=== PATIENT | male | born 1945 | race Hispanic/Latino ===

== ENCOUNTER → 2018-06-12 | Outpatient (CLI) | payer OTHER ==
[~2018-06-12] MED LIST: LOSA50TA64 PO; LOVA20TA3 PO; MONT10TA24 PO; OMEG1CAP12 PO; OMEP20CA10 PO; TAMS0.4C32 PO
== END | disposition home or self-care (01) ==
LOC: RAH 07:49
PROVIDERS: ATTEND Internal Medicine Gastroenterology
DX: N28.1 Cyst of kidney, acquired (principal); R94.5 Abnormal results of liver function studies; Z90.49 Acquired absence of other specified parts of digestive tract
CPT/HCPCS: 76700

== ENCOUNTER → 2019-03-03 | Outpatient (CLI) | payer OTHER ==
[~2019-03-03] MED LIST changes: -OMEP20CA10 PO; +OMEP20CA12 PO
== END | disposition home or self-care (01) ==
LOC: RAH 08:26
PROVIDERS: ATTEND Internal Medicine Gastroenterology
DX: N28.1 Cyst of kidney, acquired (principal)
CPT/HCPCS: 76700

== ENCOUNTER 2019-03-30 07:14 | Day surgery (SDC) | payer OTHER ==
[~2019-03-30 07:14] MED LIST changes: -MONT10TA24 PO; +MONT10TA26 PO
[2019-03-30 08:16] LABS: BASOPHILS % (AUTO) 0.4 % (0.0-5.0); EOSINOPHILS % (AUTO) 2.6 % (0.0-8.0); HEMATOCRIT 44.8 % (42-54); LYMPHOCYTES % (AUTO) 31.7 % (21.0-51.0); MEAN CORPUSCULAR HEMOGLOBIN 31.3 pg (27.0-33.0); MEAN CORPUSCULAR HGB CONC 32.6 g/dL (32.0-36.0); MEAN CORPUSCULAR VOLUME 96.1 fL (79-99); MONOCYTES % (AUTO) 8.9 % (3.0-13.0); PLATELET COUNT (AUTO) 251 K/uL (130-400); RED BLOOD CELL COUNT(AUTO) 4.66 MIL/uL (4.50-6.20); RED CELL DISTRIBUTION WIDTH 14.5 % (11.0-15.5); WHITE BLOOD COUNT (AUTO) 7.8 K/uL (4.8-10.8)
[2019-03-30 08:27] LABS: INR 1.02 (0.85-1.15); PARTIAL THROMBOPLASTIN TIME 26.4 SEC (26.3-35.5); PROTHROMBIN TIME 10.7 SEC (9.6-11.6)
[2019-03-30] MEDS ORDERED: MIDAZOLAM HCL 1 MG/ML 2ML VIAL ONE (09:35)
[2019-03-30] MEDS ORDERED: FENTANYL CITRATE PF 50 MCG/1 ML 2ML VIAL ONE (09:35)
--- NOTE | 2019-03-30 10:10 | NUR ---
U/S GUIDED LIVER BIOPSY PROCEDURE PERFORMED BY DR. YATES. PUNCTURE SITE RIGHT LATERAL RIB CAGE AND PATIENT TOLERATED PROCEDURE WELL. SPECIMEN X 3 REMOVED, SENT TO LAB. FLOSEAL PLACED TO SITE BIOPSY NEEDLE REMOVED AND DRESSING APPLIED . END OF PROCEDURE AT 1026. CATHETER REMOVED AND DRESSING APPLIED. NO BLEEDING NOTED. REPORT CALLED TO DALIA MONZON. PT TRANSPORTED TO DAYPATIENT RM 8 VIA BED. PT STABLE, AAO X3 WITH NO C/O PAIN.
[2019-03-30] MEDS ORDERED: ACETAMINOPHEN-CODEINE 300/30MG TAB PO ONE (10:30)
[2019-03-30] MEDS ORDERED: ACETAMINOPHEN-CODEINE 300/30MG TAB ONE (10:57)
== END 2019-03-30 13:50 | disposition home or self-care (01) ==
LOC: DAH 07:14 → DAHIP 07:14 → DAH 13:50
PROVIDERS: ATTEND Internal Medicine Gastroenterology
DX: R94.5 Abnormal results of liver function studies (principal); K75.89 Other specified inflammatory liver diseases; K74.0 Hepatic fibrosis; K76.0 Fatty (change of) liver, not elsewhere classified; I10 Essential (primary) hypertension; M19.90 Unspecified osteoarthritis, unspecified site; Z98.890 Other specified postprocedural states; Z90.49 Acquired absence of other specified parts of digestive tract; Z79.899 Other long term (current) drug therapy; Z87.891 Personal history of nicotine dependence; Z82.49 Family history of ischemic heart disease and other diseases of the circulatory system; Z83.3 Family history of diabetes mellitus
CPT/HCPCS: 36415; 47000; 76942; 85025; 85610; 85730; 88307; A4215; A4216; A4221; A4222; A4223 ×3; A4606; A4663; J2250; J3010; 99152; 99153; G0378

== ENCOUNTER → 2019-08-19 | Outpatient (CLI) | payer OTHER | END | disposition home or self-care (01) | LOC: RAH 07:51 | PROVIDERS: ATTEND Internal Medicine Gastroenterology | DX: N28.1 Cyst of kidney, acquired (principal); R10.13 Epigastric pain; Z90.49 Acquired absence of other specified parts of digestive tract | CPT/HCPCS: 76700 ==

== ENCOUNTER → 2019-09-03 | Outpatient (CLI) | payer OTHER ==
[~2019-09-03] MED LIST changes: +GADODIAMIDE 10 MMOL/20 ML VIAL IV ONE
== END | disposition home or self-care (01) ==
LOC: RAH 07:33
PROVIDERS: ATTEND Internal Medicine Gastroenterology
DX: N28.1 Cyst of kidney, acquired (principal); R94.5 Abnormal results of liver function studies
CPT/HCPCS: 74183; A9579

== ENCOUNTER → 2019-10-01 | Outpatient (CLI) | payer OTHER ==
[~2019-10-01] MED LIST changes: -GADODIAMIDE 10 MMOL/20 ML VIAL IV ONE
== END | disposition home or self-care (01) ==
LOC: RAH 10:36
PROVIDERS: ATTEND Internal Medicine Gastroenterology
DX: K31.84 Gastroparesis (principal); R14.0 Abdominal distension (gaseous)
CPT/HCPCS: 78264; A9541

== ENCOUNTER → 2023-06-25 | Outpatient (CLI) | payer OTHER ==
[~2023-06-25] MED LIST changes: +MONT-39 PO; -MONT10TA26 PO
== END | disposition home or self-care (01) ==
LOC: OIH 15:29
PROVIDERS: ATTEND Internal Medicine Cardiovascular Disease
DX: Z13.6 Encounter for screening for cardiovascular disorders (principal)
CPT/HCPCS: 75571